=== PATIENT | female | born 1965 | race Caucasian/White ===

== ENCOUNTER → 2016-06-02 | Outpatient (CLI) | payer OTHER ==
[2016-06-02 19:26] LABS: FREE T4 1.15 NG/DL (0.76-1.46)
== END ==
LOC: M WUC 15:11
PROVIDERS: ATTEND Physician Assistant Medical
DX: E06.3 Autoimmune thyroiditis (principal)

== ENCOUNTER → 2016-07-08 | Outpatient (CLI) | payer OTHER ==
[2016-07-08 20:08] LABS: ALBUMIN 3.8 GM/DL (3.2-5.2); ALBUMIN/GLOBULIN RATIO 1.23 (1.00-1.93); ALKALINE PHOSPHATASE 67 U/L (45-117); ALT/SGPT 29 U/L (12-78); ANION GAP 7 MEQ/L (8-16); AST/SGOT 20 U/L (15-37); BILIRUBIN,TOTAL 0.3 MG/DL (0.2-1.0); BLOOD UREA NITROGEN 14 MG/DL (7-18); CALCIUM LEVEL 9.7 MG/DL (8.5-10.1); CARBON DIOXIDE LEVEL 30 MEQ/L (21-32); CHLORIDE LEVEL 103 MEQ/L (98-107); CREATININE FOR GFR 0.71 MG/DL (0.55-1.02); GLOMERULAR FILTRATION RATE > 60.0 (>58); GLUCOSE, FASTING 114 MG/DL (70-105); SODIUM LEVEL 140 MEQ/L (136-145); TOTAL PROTEIN 6.9 GM/DL (6.4-8.2)
== END ==
LOC: M WUC 15:18
PROVIDERS: ATTEND Nurse Practitioner Family
DX: I10 Essential (primary) hypertension (principal); R73.01 Impaired fasting glucose; E55.9 Vitamin D deficiency, unspecified

== ENCOUNTER → 2016-11-27 | Outpatient (CLI) | payer OTHER ==
[2016-11-27 20:12] LABS: FREE T4 1.17 NG/DL (0.76-1.46)
== END ==
LOC: M WUC 14:11
PROVIDERS: ATTEND Physician Assistant Medical
DX: E06.3 Autoimmune thyroiditis (principal)

== ENCOUNTER → 2017-01-22 | Outpatient (REF) | payer OTHER ==
[~2017-01-22] MED LIST: CITA10TA5 PO; ESTR2TA PO; LEVO125T4 PO; LOSA50TA20 PO; VITA100067 PO
== END ==
LOC: M LAB REF 15:38
PROVIDERS: ATTEND Surgery
DX: D23.5 Other benign neoplasm of skin of trunk (principal)

== ENCOUNTER → 2017-01-22 | Outpatient (CLI) | payer OTHER ==
[2017-01-22 10:30] LABS: ALBUMIN 3.5 GM/DL (3.2-5.2); ALBUMIN/GLOBULIN RATIO 1.13 (1.00-1.93); ALKALINE PHOSPHATASE 62 U/L (45-117); ALT/SGPT 28 U/L (12-78); ANION GAP 5 MEQ/L (8-16); AST/SGOT 18 U/L (15-37); BILIRUBIN,TOTAL 0.4 MG/DL (0.2-1.0); BLOOD UREA NITROGEN 12 MG/DL (7-18); CALCIUM LEVEL 9.1 MG/DL (8.5-10.1); CARBON DIOXIDE LEVEL 30 MEQ/L (21-32); CHLORIDE LEVEL 106 MEQ/L (98-107); CHOLESTEROL LEVEL 199 MG/DL (<200); CREATININE FOR GFR 0.61 MG/DL (0.55-1.02); GLOMERULAR FILTRATION RATE > 60.0 (>51); GLUCOSE, FASTING 107 MG/DL (70-105); POTASSIUM SERUM 4.4 MEQ/L (3.5-5.1); SODIUM LEVEL 141 MEQ/L (136-145); TOTAL PROTEIN 6.6 GM/DL (6.4-8.2); TRIGLYCERIDES LEVEL 118 MG/DL (<150)
== END ==
LOC: M WUC 08:11
PROVIDERS: ATTEND Nurse Practitioner Family
DX: I10 Essential (primary) hypertension (principal); R73.01 Impaired fasting glucose; E55.9 Vitamin D deficiency, unspecified; E78.4 Other hyperlipidemia

== ENCOUNTER → 2017-03-16 | Outpatient (CLI) | payer OTHER ==
--- NOTE | 2017-03-16 19:17 | REP ---
REASON: Pain anteriorly times two weeks. PRIORS: None. There is minimal tricompartmental marginal osteophytosis. There are a few lucencies seen in the articular surface of the patella. There is subtle medial compartment narrowing. 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 Consider followup with MRI if clinically relevant. Signed by Rick Wills DO 03/16/2017 07:30 P
== END ==
LOC: M WUC 17:03
PROVIDERS: ATTEND Physician Assistant
DX: M25.562 Pain in left knee (principal)

== ENCOUNTER 2017-04-08 06:33 | Day surgery (SDC) | payer OTHER ==
[~2017-04-08] VITALS: Ht 157.5 cm; Wt 109.3 kg
[2017-04-08] MEDS ORDERED: NS 1,000 ML IV ONE (07:00)
[2017-04-08] MEDS ORDERED: PROPOFOL 200 MG/20 ML VIAL As Ordered ONE (07:38)
--- NOTE | 2017-04-08 07:50 | ROOR ---
Patient Name: Daniela Strickland Procedure Date: 04/08/2017 7:33 AM Date of : 1965 Age: 51 Room: [facility] Gender: Female Note Status: Finalized Procedure: Colonoscopy Indications: Screening for colorectal malignant neoplasm Providers: DO Zuleyka Atkinson MD: Lolis Thomas NP Requesting Provider: Medicines: Propofol per Anesthesia Complications: No immediate complications. Procedure: Pre-Anesthesia Assessment: - Prior to the procedure, a History and Physical was performed, and patient medications and allergies were reviewed. The patient is competent. The risks and benefits of the procedure and the sedation options and risks were discussed with the patient. All questions were answered and informed consent was obtained. Patient identification and proposed procedure were verified by the physician, the nurse, the anesthesiologist and the heat treat technician in the endoscopy suite. Mental Status Examination: alert and oriented. Airway Examination: normal oropharyngeal airway and neck mobility. Respiratory Examination: clear to auscultation. CV Examination: normal. Prophylactic Antibiotics: The patient does not require prophylactic antibiotics. Prior Anticoagulants: The patient has taken no previous anticoagulant or antiplatelet agents. ASA Grade Assessment: II - A patient with mild systemic disease. After reviewing the risks and benefits, the patient was deemed in satisfactory condition to undergo the procedure. The anesthesia plan was to use monitored anesthesia care (MAC). Immediately prior to administration of medications, the patient was re-assessed for adequacy to receive sedatives. The heart rate, respiratory rate, oxygen saturations, blood pressure, adequacy of pulmonary ventilation, and response to care were monitored throughout the procedure. The physical status of the patient was re-assessed after the procedure. The Colonoscope was introduced through the anus and advanced to the cecum, identified by the ileocecal valve. The colonoscopy was performed without difficulty. The patient tolerated the procedure well. Findings: The entire examined colon appeared normal on direct and retroflexion views. Impression: - The entire examined colon is normal on direct and retroflexion views. - No specimens collected. Recommendation: - Patient has a contact number available for emergencies. The signs and symptoms of potential delayed complications were discussed with the patient. Return to normal activities tomorrow. Written discharge instructions were provided to the patient. - Return to my office PRN. - Repeat colonoscopy in 10 years for screening purposes. Taz Reina DO 04/08/2017 7:50:10 AM This report has been signed electronically. Number of Addenda: 0 Note Initiated On: 04/08/2017 7:33 AM Estimated Blood Loss: Estimated blood loss: none.
[2017-04-08 08:05] VITALS: BP 139/67
== END 2017-04-08 08:28 | disposition home or self-care (01) ==
LOC: M OPP 06:33 → EDSTATUS 07:30 → M OPP 08:28
PROVIDERS: ATTEND Surgery
DX: Z12.11 Encounter for screening for malignant neoplasm of colon (principal); I10 Essential (primary) hypertension; E03.9 Hypothyroidism, unspecified; M19.90 Unspecified osteoarthritis, unspecified site; F32.9 Major depressive disorder, single episode, unspecified; Z87.891 Personal history of nicotine dependence; Z85.09 Personal history of malignant neoplasm of other digestive organs

== ENCOUNTER → 2017-07-30 | Outpatient (REF) | payer OTHER ==
[2017-07-30 13:41] LABS: BASO % 0.7 % (0.0-1.0); EOS # 0.2 10^3/uL (0.0-0.50); EOS % 3.4 % (0.0-3.0); HEMATOCRIT 37.9 % (36.0-47.0); HEMOGLOBIN 12.3 g/dl (12.0-16.0); IMMATURE GRANULOCYTE % 0.3 % (0-3.0); LYMPH # 2.1 10^3/uL (1.5-4.5); LYMPH % 35.2 % (24.0-44.0); MEAN CORPUSCULAR HGB CONC 32.5 g/dl (32.0-36.5); MEAN CORPUSCULAR VOLUME 86.1 fl (80.0-96.0); MONO # 0.3 10^3/uL (0.0-0.8); MONO % 5.5 % (0.0-5.0); NEUTROPHILS # 3.2 10^3/uL (1.8-7.7); NEUTROPHILS % 54.9 % (36.0-66.0); PLATELET COUNT, AUTOMATED 274 10^3/uL (150-450); RED CELL DISTRIBUTION WIDTH 13.5 % (11.5-14.5); WHITE BLOOD COUNT 5.9 10^3/uL (4.0-10.0)
[2017-07-30 14:45] LABS: ALBUMIN 3.5 GM/DL (3.2-5.2); ALBUMIN/GLOBULIN RATIO 1.09 (1.00-1.93); ALKALINE PHOSPHATASE 63 U/L (45-117); ALT/SGPT 23 U/L (12-78); ANION GAP 7 MEQ/L (8-16); AST/SGOT 14 U/L (7-37); BILIRUBIN,TOTAL 0.3 MG/DL (0.2-1.0); BLOOD UREA NITROGEN 14 MG/DL (7-18); CALCIUM LEVEL 9.5 MG/DL (8.5-10.1); CARBON DIOXIDE LEVEL 28 MEQ/L (21-32); CHLORIDE LEVEL 107 MEQ/L (98-107); CREATININE FOR GFR 0.59 MG/DL (0.55-1.30); GLOMERULAR FILTRATION RATE > 60.0 (>51); GLUCOSE, FASTING 122 MG/DL (70-100); POTASSIUM SERUM 4.5 MEQ/L (3.5-5.1); SODIUM LEVEL 142 MEQ/L (136-145); TOTAL PROTEIN 6.7 GM/DL (6.4-8.2)
[2017-07-30 14:48] LABS: CREATININE, URINE 69.1 MG/DL; MALB URINE SIEMENS < 5.0 MG/L; MAU/CREAT RATIO 7.2 MCG/MG (0.0-30.0)
== END ==
LOC: M SFHCPLAZ 09:51
DX: Z00.00 Encounter for general adult medical examination without abnormal findings (principal); I10 Essential (primary) hypertension
CPT/HCPCS: 80053

== ENCOUNTER → 2017-11-30 | Outpatient (CLI) | payer OTHER ==
[2017-11-30 17:22] LABS: FREE T4 1.08 NG/DL (0.76-1.46)
== END ==
LOC: M WUC 11:27
DX: E06.3 Autoimmune thyroiditis (principal)
CPT/HCPCS: 84443

== ENCOUNTER → 2018-06-07 | Outpatient (CLI) | payer OTHER ==
[~2018-06-07] MED LIST changes: -ESTR2TA PO; +ESTR2TAB2 PO; -LOSA50TA20 PO; +LOSA50TA88 PO
[2018-06-07 11:49] LABS: RED BLOOD COUNT 4.79 10^6/uL (4.00-5.40); WHITE BLOOD COUNT 5.8 10^3/uL (4.0-10.0)
[2018-06-07 11:50] LABS: HEMATOCRIT 40.4 % (36.0-47.0); HEMOGLOBIN 13.3 g/dl (12.0-15.5); MEAN CORPUSCULAR HEMOGLOBIN 27.8 pg (27.0-33.0); MEAN CORPUSCULAR HGB CONC 32.9 g/dl (32.0-36.5); MEAN CORPUSCULAR VOLUME 84.3 fl (80.0-96.0); PLATELET COUNT, AUTOMATED 302 10^3/uL (150-450)
[2018-06-07 12:21] LABS: ALBUMIN 3.9 GM/DL (3.2-5.2); ALT/SGPT 40 U/L (12-78); BILIRUBIN,TOTAL 0.6 MG/DL (0.2-1.0); BLOOD UREA NITROGEN 17 MG/DL (7-18); CALCIUM LEVEL 10.6 MG/DL (8.5-10.1); CARBON DIOXIDE LEVEL 29 MEQ/L (21-32); CHLORIDE LEVEL 101 MEQ/L (98-107); CREATININE FOR GFR 0.69 MG/DL (0.55-1.30); GLOMERULAR FILTRATION RATE > 60.0 (>51); GLUCOSE, FASTING 96 MG/DL (70-100); SODIUM LEVEL 139 MEQ/L (136-145); TOTAL 25(OH) VITAMIN D 43.2 NG/ML (30.0-100.0); TOTAL PROTEIN 7.1 GM/DL (6.4-8.2)
== END ==
LOC: M LAB 10:54
PROVIDERS: ATTEND Nurse Practitioner Family
DX: R53.83 Other fatigue (principal); I10 Essential (primary) hypertension; E03.9 Hypothyroidism, unspecified; E55.9 Vitamin D deficiency, unspecified; E66.01 Morbid (severe) obesity due to excess calories; Z68.42 Body mass index [BMI] 45.0-49.9, adult

== ENCOUNTER → 2018-08-10 | Outpatient (CLI) | payer OTHER ==
--- NOTE | 2018-08-12 23:54 | SLEEPCENT ---
DATE OF PROCEDURE: 08/10/2018 ORDERED BY: Josseline Sweeney Nocturnal polysomnography was performed for evaluation of sleep physiology in this patient with a history of excessive somnolence and nonrestorative sleep who has comorbidities of hypotension and hypothyroidism. 8 hours and 3 minutes of data were reviewed. There were 375 minutes of sleep identified. Sleep latency was mildly prolonged at 18 minutes. Rapid eye movement (REM) latency more so prolonged at 222 minutes. Sleep architecture was fair with two REM cycles. There was a period of wake around 3:00 a.m. reducing sleep efficiency to 78.6%. The patient's electrocardiogram showed baseline sinus rhythm with frequent ectopy was appreciated, and there were episodes of trigeminy noted. Average heart rate was 66 beats per minute. The ectopy did not consistently correlate with oxygen saturation or respiratory events. EEG showed reasonably normal waveforms for awake and sleep. Some coarsening in background was noted with alpha intrusion into non- REM stages. There were 60 respiratory events identified of 10 seconds in duration or greater for an apnea-hypopnea index of 9.6. The events were primarily obstructive, not exclusive to sleep stage nor body posture. Arousals from respiratory events were seen 1.6 times per hour and oxygen desaturations were seen into the 80s. There was some limb activity, but limb movement arousals were few. IMPRESSION: 1. Obstructive sleep apnea syndrome (G47.33). Apnea-hypopnea index 9.6. 2. Frequent premature ventricular contractions (PVCs) with episodes of trigeminy. RECOMMENDATIONS: The patient should be encouraged to return to the sleep disorder center for pressure therapy. In the interim, alcohol and sedative avoidance should be practiced and caution exercised during the operation of motor vehicles.
== END ==
LOC: M SLEEP 19:36
PROVIDERS: ATTEND Nurse Practitioner Family
DX: G47.33 Obstructive sleep apnea (adult) (pediatric) (principal)

== ENCOUNTER → 2018-08-10 | Outpatient (CLI) | payer OTHER ==
[2018-08-10 17:04] LABS: BLOOD UREA NITROGEN 17 MG/DL (7-18); CALCIUM LEVEL 10.3 MG/DL (8.5-10.1); CARBON DIOXIDE LEVEL 30 MEQ/L (21-32); CHLORIDE LEVEL 105 MEQ/L (98-107); CREATININE FOR GFR 0.68 MG/DL (0.55-1.30); GLOMERULAR FILTRATION RATE > 60.0 (>51); GLUCOSE, FASTING 96 MG/DL (70-100); SODIUM LEVEL 140 MEQ/L (136-145)
[2018-08-12 11:06] LABS: PTH INTACT 45.4 PG/ML (18.5-88.0); TOTAL 25(OH) VITAMIN D 24.3 NG/ML (30.0-100.0)
== END ==
LOC: M WUC 14:09
PROVIDERS: ATTEND Nurse Practitioner Family
DX: E83.52 Hypercalcemia (principal)

== ENCOUNTER → 2018-10-21 | Outpatient (CLI) | payer OTHER ==
--- NOTE | 2018-10-26 09:09 | SLEEPCENT ---
DATE OF STUDY: 10/21/2018 ORDERING PROVIDER: RUIZ Hidalgo Nocturnal polysomnography was performed for the titration of pressure therapy in this patient with obstructive sleep apnea syndrome. Apnea-hypopnea index 9.6. For testing, the patient was fit with a Punchbowl Simplus full face mask of small size. 4 cm of water pressure were applied to the circuit, and the lights were extinguished. 7 hours and 14 minutes of data were reviewed. There were 341 minutes of sleep identified. Sleep latency was prolonged at 23 minutes. Rapid eye movement (REM) latency was prolonged at 158 minutes. Sleep architecture was fair. There were two REM cycles noted with a period of awake around 2 a.m. to 3 a.m., resulting in reduced sleep efficiency of 80%. The electrocardiogram showed a sinus rhythm with some ectopic beats. Average heart rate 56 beats per minute. Electroencephalogram (EEG) showed reasonably normal waveforms for awake and sleep. Respiratory events were well palliated with continuous positive airway pressure (CPAP) at a pressure of 10. There was some limb activity, but limb movement arousal index was only 6.2. IMPRESSION: Obstructive sleep apnea syndrome (G47.33). RECOMMENDATION: Nightly use of pressure therapy, 10 cm of water.
== END ==
LOC: M SLEEP 19:41
PROVIDERS: ATTEND Nurse Practitioner Family
DX: G47.33 Obstructive sleep apnea (adult) (pediatric) (principal)

== ENCOUNTER → 2018-11-17 | Outpatient (CLI) | payer OTHER ==
[2018-11-17 20:21] LABS: FREE T4 1.06 NG/DL (0.76-1.46); THYROID STIMULATING HORMONE 0.757 uIU/ML (0.358-3.740)
== END ==
LOC: M WUC 16:50
PROVIDERS: ATTEND Nurse Practitioner Family
DX: E06.3 Autoimmune thyroiditis (principal)

== ENCOUNTER → 2018-11-23 | Outpatient (REF) | payer OTHER | LOC: M SFHCPLAZ 15:48 | PROVIDERS: ATTEND Nurse Practitioner Family | DX: I10 Essential (primary) hypertension (principal); Z53.9 Procedure and treatment not carried out, unspecified reason ==

== ENCOUNTER → 2018-12-02 | Outpatient (CLI) | payer OTHER ==
[2018-12-02 12:11] LABS: ALBUMIN 3.8 GM/DL (3.2-5.2); ALT/SGPT 44 U/L (12-78); BILIRUBIN,TOTAL 0.7 MG/DL (0.2-1.0); BLOOD UREA NITROGEN 12 MG/DL (7-18); CALCIUM LEVEL 9.2 MG/DL (8.5-10.1); CARBON DIOXIDE LEVEL 29 MEQ/L (21-32); CHLORIDE LEVEL 108 MEQ/L (98-107); CREATININE FOR GFR 0.59 MG/DL (0.55-1.30); GLOMERULAR FILTRATION RATE > 60.0 (>51); GLUCOSE, FASTING 101 MG/DL (70-100); POTASSIUM SERUM 4.3 MEQ/L (3.5-5.1); SODIUM LEVEL 142 MEQ/L (136-145); TOTAL PROTEIN 6.7 GM/DL (6.4-8.2)
[2018-12-03 11:03] LABS: HEPATITIS B SURFACE ANTIGEN NEGATIVE (NEGATIVE)
[2018-12-03 11:30] LABS: HEPATITIS C VIRUS ABY INDEX 0.1 INDEX (<0.8)
[2018-12-03 11:31] LABS: HEPATITIS B CORE ANTIBODY IGM NEGATIVE (NEGATIVE)
[2018-12-03 11:33] LABS: HEPATITIS A ANTIBODY IGM NEGATIVE (NEGATIVE)
== END ==
LOC: M WUC 09:13
PROVIDERS: ATTEND Nurse Practitioner Family
DX: I10 Essential (primary) hypertension (principal); Z20.5 Contact with and (suspected) exposure to viral hepatitis

== ENCOUNTER → 2019-02-22 | Outpatient (CLI) | payer OTHER ==
[2019-02-22 11:58] LABS: ALBUMIN 3.9 GM/DL (3.2-5.2); ALT/SGPT 31 U/L (12-78); BILIRUBIN,TOTAL 0.4 MG/DL (0.2-1.0); BLOOD UREA NITROGEN 22 MG/DL (7-18); CALCIUM LEVEL 9.7 MG/DL (8.5-10.1); CARBON DIOXIDE LEVEL 28 MEQ/L (21-32); CHLORIDE LEVEL 109 MEQ/L (98-107); CHOLESTEROL LEVEL 207 MG/DL (<200); CHOLESTEROL RISK RATIO 4.404 (<5); CREATININE FOR GFR 0.61 MG/DL (0.55-1.30); GLOMERULAR FILTRATION RATE > 60.0 (>51); GLUCOSE, FASTING 99 MG/DL (70-100); HDL CHOLESTEROL 47 MG/DL (>40); LDL CHOLESTEROL 145 MG/DL (<100); NON-HDL-C 160 MG/DL; POTASSIUM SERUM 4.4 MEQ/L (3.5-5.1); SODIUM LEVEL 145 MEQ/L (136-145); THYROID STIMULATING HORMONE 0.462 uIU/ML (0.358-3.740); TOTAL PROTEIN 6.7 GM/DL (6.4-8.2); TRIGLYCERIDES LEVEL 75 MG/DL (<150)
[2019-02-22 13:45] LABS: TOTAL 25(OH) VITAMIN D 38.7 NG/ML (30.0-100.0)
== END ==
LOC: M WUC 08:42
PROVIDERS: ATTEND Nurse Practitioner Family
DX: E78.49 Other hyperlipidemia (principal); E03.9 Hypothyroidism, unspecified; E55.9 Vitamin D deficiency, unspecified; I10 Essential (primary) hypertension

== ENCOUNTER → 2019-08-17 | Outpatient (REF) | payer OTHER | LOC: M WUC 15:53 → M LAB REF 15:53 | PROVIDERS: ATTEND Nurse Practitioner Family | DX: E06.3 Autoimmune thyroiditis (principal) ==

== ENCOUNTER → 2019-09-08 | Outpatient (CLI) | payer OTHER ==
[2019-09-08 20:14] LABS: ALT/SGPT 42 U/L (12-78); BLOOD UREA NITROGEN 16 MG/DL (7-18); CALCIUM LEVEL 9.8 MG/DL (8.5-10.1); CARBON DIOXIDE LEVEL 29 MEQ/L (21-32); CHLORIDE LEVEL 104 MEQ/L (98-107); CREATININE FOR GFR 0.66 MG/DL (0.55-1.30); GLOMERULAR FILTRATION RATE > 60.0 (>51); GLUCOSE, FASTING 95 MG/DL (70-100); POTASSIUM SERUM 4.2 MEQ/L (3.5-5.1); SODIUM LEVEL 138 MEQ/L (136-145)
[2019-09-08 20:15] LABS: ALBUMIN 3.9 GM/DL (3.2-5.2); BILIRUBIN,TOTAL 0.3 MG/DL (0.2-1.0); TOTAL PROTEIN 7.1 GM/DL (6.4-8.2)
--- NOTE | 2019-09-09 02:45 | REP ---
Clinical: Primary/essential hypertension and history of pneumonia . Comparison: None . Technique: PA and lateral. Findings: The mediastinum and cardiac silhouette are normal. The lung longoria are clear and without acute consolidation, effusion, or pneumothorax. The skeletal structures are intact and normal. Impression: 1. No acute cardiopulmonary process. Electronically Signed by Atilio Mcdonough MD 09/09/2019 02:36 A
== END ==
LOC: M WUC 15:21
PROVIDERS: ATTEND Nurse Practitioner Family
DX: I10 Essential (primary) hypertension (principal); Z87.01 Personal history of pneumonia (recurrent)

== ENCOUNTER → 2019-10-27 | Outpatient (CLI) | payer OTHER ==
[2019-10-27 14:15] LABS: FREE T4 1.28 NG/DL (0.76-1.46); THYROID STIMULATING HORMONE 3.12 uIU/ML (0.358-3.740)
== END ==
LOC: M WUC 09:36
PROVIDERS: ATTEND Nurse Practitioner Family
DX: E06.3 Autoimmune thyroiditis (principal)

== ENCOUNTER → 2020-02-21 | Outpatient (CLI) | payer OTHER ==
[2020-02-21 19:05] LABS: FREE T4 1.12 NG/DL (0.76-1.46); THYROID STIMULATING HORMONE 1.2 uIU/ML (0.358-3.740)
== END ==
LOC: M WUC 11:47
PROVIDERS: ATTEND Nurse Practitioner Family
DX: E06.3 Autoimmune thyroiditis (principal)

== ENCOUNTER → 2020-03-08 | Outpatient (CLI) | payer OTHER ==
[2020-03-08 10:23] LABS: ALBUMIN 3.9 GM/DL (3.2-5.2); ALT/SGPT 39 U/L (12-78); BILIRUBIN,TOTAL 0.3 MG/DL (0.2-1.0); BLOOD UREA NITROGEN 21 MG/DL (7-18); CALCIUM LEVEL 9.8 MG/DL (8.5-10.1); CARBON DIOXIDE LEVEL 31 MEQ/L (21-32); CHLORIDE LEVEL 106 MEQ/L (98-107); CHOLESTEROL LEVEL 245 MG/DL (<200); CHOLESTEROL RISK RATIO 4.083 (<5); CREATININE FOR GFR 0.69 MG/DL (0.55-1.30); GLOMERULAR FILTRATION RATE > 60.0 (>51); GLUCOSE, FASTING 115 MG/DL (70-100); HDL CHOLESTEROL 60 MG/DL (>40); LDL CHOLESTEROL 166 MG/DL (<100); NON-HDL-C 185 MG/DL; POTASSIUM SERUM 4.1 MEQ/L (3.5-5.1); SODIUM LEVEL 142 MEQ/L (136-145); TOTAL PROTEIN 7.1 GM/DL (6.4-8.2); TRIGLYCERIDES LEVEL 97 MG/DL (<150)
[2020-03-08 16:17] LABS: TOTAL 25(OH) VITAMIN D 45.5 NG/ML (30.0-100.0)
== END ==
LOC: M WUC 08:03
PROVIDERS: ATTEND Nurse Practitioner Family
DX: I10 Essential (primary) hypertension (principal); E78.5 Hyperlipidemia, unspecified; E55.9 Vitamin D deficiency, unspecified

== ENCOUNTER 2020-07-20 08:30 | Outpatient (RCR) | payer OTHER | END 2020-07-22 | LOC: M PT 08:30 | PROVIDERS: ATTEND Surgery Vascular Surgery | DX: I89.0 Lymphedema, not elsewhere classified (principal) ==

== ENCOUNTER 2020-08-06 16:33 | Outpatient (RCR) | payer OTHER | END 2020-08-22 | LOC: M PT 16:33 | PROVIDERS: ATTEND Surgery Vascular Surgery | DX: I89.0 Lymphedema, not elsewhere classified (principal) ==

== ENCOUNTER → 2020-08-14 | Outpatient (CLI) | payer OTHER ==
[2020-08-14 17:30] LABS: FREE T4 1.09 NG/DL (0.76-1.46); THYROID STIMULATING HORMONE 0.932 uIU/ML (0.358-3.740)
== END ==
LOC: M WUC 15:28
PROVIDERS: ATTEND Nurse Practitioner Family
DX: E06.3 Autoimmune thyroiditis (principal)

== ENCOUNTER → 2020-09-06 | Outpatient (CLI) | payer OTHER ==
[2020-09-06 10:40] LABS: ALBUMIN 3.7 GM/DL (3.2-5.2); ALT/SGPT 40 U/L (12-78); BILIRUBIN,TOTAL 0.3 MG/DL (0.2-1.0); BLOOD UREA NITROGEN 27 MG/DL (7-18); CALCIUM LEVEL 9.9 MG/DL (8.5-10.1); CARBON DIOXIDE LEVEL 28 MEQ/L (21-32); CHLORIDE LEVEL 107 MEQ/L (98-107); CHOLESTEROL LEVEL 231 MG/DL (<200); CHOLESTEROL RISK RATIO 4.125 (<5); CREATININE FOR GFR 0.58 MG/DL (0.55-1.30); GLOMERULAR FILTRATION RATE > 60.0 (>51); GLUCOSE, FASTING 110 MG/DL (70-100); HDL CHOLESTEROL 56 MG/DL (>40); LDL CHOLESTEROL 159 MG/DL (<100); NON-HDL-C 175 MG/DL; POTASSIUM SERUM 4.5 MEQ/L (3.5-5.1); SODIUM LEVEL 141 MEQ/L (136-145); TOTAL PROTEIN 6.7 GM/DL (6.4-8.2); TRIGLYCERIDES LEVEL 78 MG/DL (<150)
[2020-09-06 10:46] LABS: MALB URINE SIEMENS 8.4 MG/L; MAU/CREAT RATIO 7.3 MCG/MG (0.0-30.0)
[2020-09-06 18:19] LABS: HEMOGLOBIN A1c 5.8 %
== END ==
LOC: M WUC 08:34
PROVIDERS: ATTEND Nurse Practitioner Family
DX: E78.5 Hyperlipidemia, unspecified (principal); I10 Essential (primary) hypertension; R73.01 Impaired fasting glucose; E55.9 Vitamin D deficiency, unspecified

== ENCOUNTER → 2021-02-28 | Outpatient (CLI) | payer OTHER ==
[2021-02-28 13:13] LABS: HEMOGLOBIN A1c 5.6 %
[2021-02-28 14:55] LABS: ALBUMIN 3.8 GM/DL (3.2-5.2); ALT/SGPT 48 U/L (12-78); BILIRUBIN,TOTAL 0.4 MG/DL (0.2-1.0); BLOOD UREA NITROGEN 18 MG/DL (7-18); CARBON DIOXIDE LEVEL 28 MEQ/L (21-32); CHLORIDE LEVEL 104 MEQ/L (98-107); CREATININE FOR GFR 0.58 MG/DL (0.55-1.30); GLOMERULAR FILTRATION RATE > 60.0 (>51); GLUCOSE, FASTING 106 MG/DL (70-100); POTASSIUM SERUM 4.5 MEQ/L (3.5-5.1); SODIUM LEVEL 139 MEQ/L (136-145); TOTAL 25(OH) VITAMIN D 39.2 NG/ML (30.0-100.0)
== END ==
LOC: M WUC 10:21
PROVIDERS: ATTEND Nurse Practitioner Family
DX: R73.03 Prediabetes (principal); I10 Essential (primary) hypertension; E55.9 Vitamin D deficiency, unspecified

== ENCOUNTER → 2021-05-03 | Outpatient (CLI) | payer OTHER ==
[~2021-05-03] MED LIST changes: -ESTR2TAB2 PO; +ESTR2TAB3 PO
--- NOTE | 2021-05-03 16:27 | REPMRS ---
Patient History The patient states she has not had a clinical breast exam in over a year. Patient is postmenopausal. No known family history of cancer. Patient states no breast complaints today. Patient has signed MRS History Sheet. Digital Woman Screen Mammo: May 03, 2021 - Exam #: [id number] Bilateral CC and MLO view(s) were taken. Technologist: Bernadine Parnell, Technologist Prior study comparison: March 16, 2018, bilateral digital mammo screening bilat, performed at [facility]. August 01, 2015, bilateral digital mammo screening bilat, performed at [facility]. FINDINGS: The breast tissue is almost entirely fat. Screening. Digital screening (2D) mammography was performed bilaterally in the CC and MLO projections. Additionally, breast tomosynthesis (3D mammography) was performed bilaterally in the CC and MLO projections. Todays exam was compared to the prior exam/exams. By history, the patient has no complaints of a palpable breast abnormality or other significant breast complaints. The Volpara volumetric breast density category is A, the breasts are almost entirely fatty. The breasts are unchanged in size and shape.There is a stable benign intramammary lymph node in the right breast. There are no zulema-soft tissue densities or spiculated masses. There is no internal architectural distortion. There are no suspicious zulema-calcific clusters. Skin thickening or nipple retraction is not present. IMPRESSION: BI-RADS Category 2- Benign Findings. There is no evidence of malignant alteration of the breasts. Followup examination recommended in one year. This mammogram was read with the assistance of Mobile Backstage,an FDA approved computer aided detection system for mammography. The lifetime Tyrer-Cuzick score is 8.0% Negative x-ray reports should not delay surgical consultation if a dominant or clinically suspicious mass is present. Not all breast cancers can be identified by mammography. Therefore, we recommend that you continue to perform regular breast self-examination and physical examination and then promptly contact your physician of any concerns or changes. Adenosis and dense breasts may obscure an underlying neoplasm. No significant changes when compared with prior studies. Assessment: BI-RADS/ACR category 2 mammogram. Benign Findings. Recommendation Routine screening mammogram of both breasts in 1 year. Electronically Signed By: William Velásquez MD 05/03/21 [id number]
== END ==
LOC: M WHC 15:08
PROVIDERS: ATTEND Nurse Practitioner Family
DX: Z12.31 Encounter for screening mammogram for malignant neoplasm of breast (principal); Z78.0 Asymptomatic menopausal state

== ENCOUNTER → 2021-12-31 | Outpatient (CLI) | payer OTHER ==
[~2021-12-31] MED LIST changes: -CITA10TA5 PO; +CITA10TA7 PO; +LOSA50TA28 PO; -LOSA50TA88 PO
[2021-12-31 10:33] LABS: BASO % 0.6 % (0.0-1.0); EOS # 0.2 10^3/uL (0.0-0.5); EOS % 3.1 % (0.0-3.0); HEMOGLOBIN 13.5 g/dl (12.0-15.5); LYMPH # 1.7 10^3/uL (1.5-5.0); LYMPH % 32.7 % (24.0-44.0); MEAN CORPUSCULAR HEMOGLOBIN 27.9 pg (27.0-33.0); MEAN CORPUSCULAR HGB CONC 32.1 g/dl (32.0-36.5); MEAN CORPUSCULAR VOLUME 86.8 fl (80.0-96.0); MONO # 0.3 10^3/uL (0.0-0.8); MONO % 6.5 % (2.0-8.0); NEUTROPHILS % 56.7 % (36.0-66.0); PLATELET COUNT, AUTOMATED 263 10^3/uL (150-450); RED BLOOD COUNT 4.84 10^6/uL (4.00-5.40); WHITE BLOOD COUNT 5.2 10^3/uL (4.0-10.0)
[2021-12-31 11:01] LABS: ALBUMIN 3.8 GM/DL (3.2-5.2); ALT/SGPT 34 U/L (12-78); BILIRUBIN,TOTAL 0.5 MG/DL (0.2-1.0); BLOOD UREA NITROGEN 23 MG/DL (7-18); CARBON DIOXIDE LEVEL 30 MEQ/L (21-32); CHLORIDE LEVEL 106 MEQ/L (98-107); CHOLESTEROL LEVEL 228 MG/DL (<200); CREATININE FOR GFR 0.66 MG/DL (0.55-1.30); GLOMERULAR FILTRATION RATE > 60.0 (>51); GLUCOSE, FASTING 116 MG/DL (70-100); HDL CHOLESTEROL 51 MG/DL (>40); LDL CHOLESTEROL 155 MG/DL (<100); NON-HDL-C 177 MG/DL; POTASSIUM SERUM 4.2 MEQ/L (3.5-5.1); SODIUM LEVEL 143 MEQ/L (136-145); TOTAL PROTEIN 6.8 GM/DL (6.4-8.2); TRIGLYCERIDES LEVEL 112 MG/DL (<150)
[2021-12-31 11:11] LABS: HEMOGLOBIN A1c 5.9 %
[2021-12-31 11:30] LABS: TOTAL 25(OH) VITAMIN D 43.8 NG/ML (30.0-100.0)
== END ==
LOC: M PLALAB 07:28
PROVIDERS: ATTEND Nurse Practitioner Family
DX: E78.5 Hyperlipidemia, unspecified (principal); E55.9 Vitamin D deficiency, unspecified; R73.03 Prediabetes; I10 Essential (primary) hypertension

== ENCOUNTER → 2022-02-03 | Outpatient (CLI) | payer OTHER | LOC: M SOG 08:45 | PROVIDERS: ATTEND Orthopaedic Surgery | DX: M25.511 Pain in right shoulder (principal) ==

== ENCOUNTER → 2022-04-18 | Outpatient (CLI) | payer OTHER ==
[2022-04-18 08:29] LABS: BASO % 0.7 % (0.0-1.0); EOS # 0.2 10^3/uL (0.0-0.5); HEMATOCRIT 41.8 % (36.0-47.0); HEMOGLOBIN 13.4 g/dl (12.0-15.5); MEAN CORPUSCULAR HEMOGLOBIN 27.8 pg (27.0-33.0); MEAN CORPUSCULAR HGB CONC 32.1 g/dl (32.0-36.5); MEAN CORPUSCULAR VOLUME 86.7 fl (80.0-96.0); MONO # 0.3 10^3/uL (0.0-0.8); MONO % 4.9 % (2.0-8.0); NEUTROPHILS # 2.9 10^3/uL (1.5-8.5); PLATELET COUNT, AUTOMATED 255 10^3/uL (150-450); RED BLOOD COUNT 4.82 10^6/uL (4.00-5.40); WHITE BLOOD COUNT 5.4 10^3/uL (4.0-10.0)
[2022-04-18 09:07] LABS: ALT/SGPT 37 U/L (7.0-40); BILIRUBIN,TOTAL 0.6 MG/DL (0.3-1.2); BLOOD UREA NITROGEN 16 MG/DL (9-23); CALCIUM LEVEL 9.9 MG/DL (8.5-10.1); CARBON DIOXIDE LEVEL 30 MMOL/L (20-31); CHLORIDE LEVEL 103 MMOL/L (98-107); CHOLESTEROL LEVEL 208 MG/DL (<200); CREATININE FOR GFR 0.62 MG/DL (0.55-1.30); GLOMERULAR FILTRATION RATE > 60.0 (>51); GLUCOSE, FASTING 103 MG/DL (60-100); HDL CHOLESTEROL 46.2 MG/DL (>40); LDL CHOLESTEROL 145.4 MG/DL (<100); NON-HDL-C 162 MG/DL; POTASSIUM SERUM 4.1 MMOL/L (3.5-5.1); SODIUM LEVEL 139 MMOL/L (136-145); TOTAL 25(OH) VITAMIN D 54.9 NG/ML (20.0-100.0); TOTAL PROTEIN 6.6 G/DL (5.7-8.2); TRIGLYCERIDES LEVEL 82 MG/DL (<150)
[2022-04-18 11:25] LABS: HEMOGLOBIN A1c 5.3 % (4.0-6.0)
== END ==
LOC: M LAB 08:07 → M PLALAB 08:07
PROVIDERS: ATTEND Nurse Practitioner Family
DX: I10 Essential (primary) hypertension (principal); E55.9 Vitamin D deficiency, unspecified; R73.03 Prediabetes; E78.5 Hyperlipidemia, unspecified

== ENCOUNTER → 2022-04-21 | Outpatient (CLI) | payer OTHER ==
[2022-04-21 19:39] LABS: FREE T4 1.61 NG/DL (0.89-1.76); THYROID STIMULATING HORMONE 0.297 uIU/ML (0.55-4.78)
== END ==
LOC: M WUC 15:13
PROVIDERS: ATTEND Nurse Practitioner Family
DX: E06.3 Autoimmune thyroiditis (principal)

== ENCOUNTER → 2022-07-23 | Outpatient (CLI) | payer OTHER ==
[2022-07-24 11:38] LABS: THYROID STIMULATING HORMONE 0.383 uIU/ML (0.55-4.78)
[2022-07-24 11:39] LABS: FREE T4 1.5 NG/DL (0.89-1.76)
== END ==
LOC: M PLALAB 16:27
PROVIDERS: ATTEND Nurse Practitioner Family
DX: E06.3 Autoimmune thyroiditis (principal)

== ENCOUNTER 2022-08-25 22:44 | Inpatient (IN) | payer OTHER ==
[~2022-08-25] VITALS: Ht 157.5 cm; Wt 99.7 kg
[2022-08-25 17:30] LABS: BASO # 0.1 10^3/uL (0.0-0.2); BASO % 0.4 % (0.0-1.0); EOS # 0.1 10^3/uL (0.0-0.5); HEMATOCRIT 41.2 % (36.0-47.0); HEMOGLOBIN 13.3 g/dl (12.0-15.5); LYMPH # 2.7 10^3/uL (1.5-5.0); LYMPH % 22.1 % (24.0-44.0); MEAN CORPUSCULAR HEMOGLOBIN 26.5 pg (27.0-33.0); MEAN CORPUSCULAR HGB CONC 32.3 g/dl (32.0-36.5); MEAN CORPUSCULAR VOLUME 82.2 fl (80.0-96.0); MONO # 0.7 10^3/uL (0.0-0.8); MONO % 5.3 % (2.0-8.0); NEUTROPHILS # 8.8 10^3/uL (1.5-8.5); NEUTROPHILS % 70.9 % (36.0-66.0); PLATELET COUNT, AUTOMATED 293 10^3/uL (150-450); RED BLOOD COUNT 5.01 10^6/uL (4.00-5.40); WHITE BLOOD COUNT 12.4 10^3/uL (4.0-10.0)
[2022-08-25] MEDS: fentaNYL 100 MCG/2 ML INJECTION IV PRN ×2 (17:31→17:48)
[2022-08-25 17:55] LABS: INR 0.89; PROTHROMBIN TIME 12.2 SECONDS (12.5-14.5)
[2022-08-25 18:01] LABS: CK-MB VALUE MASS < 1.0 NG/ML (<3.6); LIPASE 53 U/L (12-53)
[2022-08-25 18:02] LABS: CPK CREATINE PHOSPHOKINASE 83 U/L (34-145); CPK CREATINE PHOSPHOKINASE 86 U/L (34-145)
[2022-08-25 18:05] LABS: RSV AMPLIFICATION NEGATIVE (NEGATIVE)
[2022-08-25] MEDS: METOPROLOL 5 MG/5 ML VIAL IV SCH ×3 (18:20→18:35)
[2022-08-25 18:22] LABS: ALBUMIN 4.1 G/DL (3.2-5.2); ALKALINE PHOSPHATASE 77 U/L (46-116); ALT/SGPT 51 U/L (7.0-40); AST/SGOT 46 U/L (<34); BILIRUBIN,DIRECT 0.5 MG/DL (<0.4); BLOOD UREA NITROGEN 15 MG/DL (9-23); CALCIUM LEVEL 11.2 MG/DL (8.5-10.1); CARBON DIOXIDE LEVEL 28 MMOL/L (20-31); CHLORIDE LEVEL 102 MMOL/L (98-107); CK-MB VALUE MASS < 1.0 NG/ML (<3.6); FREE T4 1.67 NG/DL (0.89-1.76); GLOMERULAR FILTRATION RATE > 60.0 (>51); GLUCOSE, FASTING 109 MG/DL (60-100); MAGNESIUM LEVEL 2.2 MG/DL (1.8-2.4); MB/CK RELATIVE INDEX 1.16 (< OR =4); POTASSIUM SERUM 3.4 MMOL/L (3.5-5.1); SODIUM LEVEL 139 MMOL/L (136-145); THYROID STIMULATING HORMONE 0.367 uIU/ML (0.55-4.78); TOTAL PROTEIN 7.2 G/DL (5.7-8.2)
[2022-08-25 19:24] LABS: CK-MB VALUE MASS < 1.0 NG/ML (<3.6)
[2022-08-25 19:37] LABS: CPK CREATINE PHOSPHOKINASE 82 U/L (34-145); MB/CK RELATIVE INDEX 1.21 (< OR =4)
[~2022-08-25 22:44] MED LIST changes: +ACETAMINOPHEN TAB 650MG DOSE (2X325MG) PO PRN; +ASPIRIN 81MG CHEW TABLET As Ordered ONE; +ASPIRIN 81MG CHEW TABLET PO ONE; +DIGOXIN 0.25 MG TAB PO ONE; +ISOVUE-370 76% 100ML VIAL As Ordered ONE; +METOPROLOL 5 MG/5 ML VIAL As Ordered ONE; +METOPROLOL 5 MG/5 ML VIAL IV STA; +MOM 30ML SUSPENSION UDC PO PRN; +NITROGLYCERIN 0.4MG SUBL TABLET As Ordered ONE; +NITROGLYCERIN 0.4MG SUBL TABLET SL PRN; +NS 500 ML IV ONE; +ONDANSETRON 4MG 2ML VIAL As Ordered ONE; +ONDANSETRON 4MG 2ML VIAL IV ONE; +PIPERACILLIN/TAZOBACTAM SOD 4.5 GM in D5W MINI-BAG PLUS 50 ML IV ONE; +atenoloL 50 MG TAB PO ONE; +fentaNYL 100 MCG/2 ML INJECTION As Ordered ONE
[2022-08-25] MEDS ORDERED: CELE10TA PO (22:50)
[2022-08-25] MEDS ORDERED: CHLO125TA PO (22:50)
[2022-08-25] MEDS ORDERED: VITA100093 PO (22:50)
[2022-08-25] MEDS ORDERED: LOSA100T45 PO (22:50)
[2022-08-25] MEDS ORDERED: HOME MED LIST COMPLETE! XX SCH (22:50)
[2022-08-25] MEDS ORDERED: SEMA1PEN2 SC (22:50)
[2022-08-25] MEDS ORDERED: SYNT100T PO (22:50)
[2022-08-25] MEDS: NS 1,000 ML IV SCH (22:51)
[2022-08-25 23:14] VITALS: BP 104/59
[2022-08-26] VITALS (7 sets, daily range): BP systolic 91–124; BP diastolic 48–59
[2022-08-26] MEDS: PIPERACILLIN/TAZOBACTAM SOD 4.5 GM in D5W MINI-BAG PLUS 50 ML IV SCH ×4 (01:42→20:21)
[2022-08-26] MEDS: LEVOTHYROXINE 100MCG TABLET (0.1MG) PO SCH (05:01)
[2022-08-26 05:42] LABS: HEMATOCRIT 37.5 % (36.0-47.0); MEAN CORPUSCULAR HEMOGLOBIN 26.7 pg (27.0-33.0); MEAN CORPUSCULAR VOLUME 83.3 fl (80.0-96.0); PLATELET COUNT, AUTOMATED 257 10^3/uL (150-450); WHITE BLOOD COUNT 5.5 10^3/uL (4.0-10.0)
[2022-08-26] MEDS ORDERED: HEPARIN SOD (PORCINE) 5000UNITS/ML 1ML VIAL/SYRINGE SC SCH (06:00)
[2022-08-26 06:16] LABS: ALBUMIN 3.1 G/DL (3.2-5.2); ALKALINE PHOSPHATASE 71 U/L (46-116); ALT/SGPT 221 U/L (7.0-40); AST/SGOT 170 U/L (<34); BILIRUBIN,TOTAL 1.3 MG/DL (0.3-1.2); BLOOD UREA NITROGEN 12 MG/DL (9-23); CALCIUM LEVEL 9.6 MG/DL (8.5-10.1); CARBON DIOXIDE LEVEL 29 MMOL/L (20-31); CHLORIDE LEVEL 108 MMOL/L (98-107); CREATININE FOR GFR 0.68 MG/DL (0.55-1.30); GLOMERULAR FILTRATION RATE > 60.0 (>51); GLUCOSE, FASTING 85 MG/DL (60-100); POTASSIUM SERUM 3.6 MMOL/L (3.5-5.1); SODIUM LEVEL 143 MMOL/L (136-145); TOTAL PROTEIN 5.6 G/DL (5.7-8.2)
[2022-08-26] MEDS: NS 1,000 ML IV SCH (07:59)
[2022-08-26] MEDS ORDERED: LOSARTAN 50MG TABLET PO SCH (09:00)
[2022-08-26] MEDS: DIGOXIN 0.125 MG TAB PO SCH (09:25)
[2022-08-26] MEDS: CitaloPRAM (CeleXA) 10 MG TABLET PO SCH (09:25)
[2022-08-26] MEDS: atenoloL 50 MG TAB PO SCH (09:26)
[2022-08-26 11:48] LABS: HEPATITIS B SURFACE ANTIGEN NEGATIVE (NEGATIVE)
[2022-08-26] MEDS ORDERED: POTASSIUM CHLORIDE 10MEQ SR TABLET PO ONE (12:00)
[2022-08-26 12:10] LABS: HEPATITIS B CORE ANTIBODY IGM NEGATIVE (NEGATIVE)
[2022-08-26] MEDS: LOSARTAN 50MG TABLET PO SCH (12:30)
[2022-08-26] MEDS: CHLORTHALIDONE 12.5MG PER 1/2 TABLET PO SCH (12:31)
[2022-08-26] MEDS: APIXABAN 5 MG TAB (ELIQUIS) PO SCH ×2 (13:00→20:21)
[2022-08-27] MEDS: PIPERACILLIN/TAZOBACTAM SOD 4.5 GM in D5W MINI-BAG PLUS 50 ML IV SCH ×2 (02:12→08:49)
[2022-08-27 03:28] VITALS: BP 126/65
[2022-08-27 05:39] LABS: HEMATOCRIT 36.4 % (36.0-47.0); HEMOGLOBIN 11.4 g/dl (12.0-15.5); MEAN CORPUSCULAR HEMOGLOBIN 26.2 pg (27.0-33.0); MEAN CORPUSCULAR HGB CONC 31.3 g/dl (32.0-36.5); MEAN CORPUSCULAR VOLUME 83.7 fl (80.0-96.0); PLATELET COUNT, AUTOMATED 274 10^3/uL (150-450); RED BLOOD COUNT 4.35 10^6/uL (4.00-5.40); WHITE BLOOD COUNT 6.1 10^3/uL (4.0-10.0)
[2022-08-27] MEDS: LEVOTHYROXINE 100MCG TABLET (0.1MG) PO SCH (05:39)
[2022-08-27 06:02] LABS: ALBUMIN 3.1 G/DL (3.2-5.2); ALKALINE PHOSPHATASE 72 U/L (46-116); ALT/SGPT 168 U/L (7.0-40); AST/SGOT 71 U/L (<34); BILIRUBIN,TOTAL 0.6 MG/DL (0.3-1.2); BLOOD UREA NITROGEN 13 MG/DL (9-23); CALCIUM LEVEL 9.1 MG/DL (8.5-10.1); CARBON DIOXIDE LEVEL 28 MMOL/L (20-31); CHLORIDE LEVEL 107 MMOL/L (98-107); CREATININE FOR GFR 0.66 MG/DL (0.55-1.30); GLOMERULAR FILTRATION RATE > 60.0 (>51); GLUCOSE, FASTING 94 MG/DL (60-100); PHOSPHORUS LEVEL 3.4 MG/DL (2.5-4.9); POTASSIUM SERUM 3.9 MMOL/L (3.5-5.1); SODIUM LEVEL 140 MMOL/L (136-145); TOTAL PROTEIN 5.6 G/DL (5.7-8.2)
[2022-08-27 07:50] VITALS: BP 130/63
[2022-08-27] MEDS ORDERED: ELIQ5TAB PO (08:38)
[2022-08-27] MEDS ORDERED: METR-265 PO (08:49)
[2022-08-27] MEDS ORDERED: CEFD300C41 PO (08:49)
[2022-08-27] MEDS ORDERED: DIGO0.123 PO (08:49)
[2022-08-27] MEDS ORDERED: COZA50TA PO (08:49)
[2022-08-27] MEDS ORDERED: ATEN50TA2 PO (08:49)
[2022-08-27] MEDS: DIGOXIN 0.125 MG TAB PO SCH (08:50)
[2022-08-27] MEDS: CHLORTHALIDONE 12.5MG PER 1/2 TABLET PO SCH (08:50)
[2022-08-27] MEDS: CitaloPRAM (CeleXA) 10 MG TABLET PO SCH (08:50)
[2022-08-27] MEDS: APIXABAN 5 MG TAB (ELIQUIS) PO SCH (08:51)
[2022-08-27] MEDS: atenoloL 50 MG TAB PO SCH (08:51)
[2022-08-27] MEDS: LOSARTAN 50MG TABLET PO SCH (08:51)
== END 2022-08-27 11:08 | disposition home or self-care (01) | DRG 446 ==
LOC: M ED 22:44 → M ED INP 22:53 → M PCU 22:58
PROVIDERS: ADMIT Family Medicine; ATTEND Family Medicine
PROC: B246ZZZ Ultrasonography of Right and Left Heart (ICD-10-PCS; principal; 2022-08-27)
DX: K80.00 Calculus of gallbladder with acute cholecystitis without obstruction (principal); I10 Essential (primary) hypertension; E03.9 Hypothyroidism, unspecified; R74.01 Elevation of levels of liver transaminase levels; Z90.79 Acquired absence of other genital organ(s); I48.91 Unspecified atrial fibrillation; E66.9 Obesity, unspecified; Z68.35 Body mass index [BMI] 35.0-35.9, adult; Z79.890 Hormone replacement therapy; Z79.899 Other long term (current) drug therapy; Z20.822 Contact with and (suspected) exposure to COVID-19

== ENCOUNTER → 2022-09-15 | Outpatient (CLI) | payer OTHER ==
[~2022-09-15] MED LIST changes: -ACETAMINOPHEN TAB 650MG DOSE (2X325MG) PO PRN; -ASPIRIN 81MG CHEW TABLET As Ordered ONE; -ASPIRIN 81MG CHEW TABLET PO ONE; +ATEN50TA2 PO; +CEFD300C41 PO; +CELE10TA PO; +CHLO125TA PO; +COZA50TA PO; +DIGO0.123 PO; -DIGOXIN 0.25 MG TAB PO ONE; +ELIQ5TAB PO; -ISOVUE-370 76% 100ML VIAL As Ordered ONE; +LOSA100T45 PO; -METOPROLOL 5 MG/5 ML VIAL As Ordered ONE; -METOPROLOL 5 MG/5 ML VIAL IV STA; +METR-265 PO; -MOM 30ML SUSPENSION UDC PO PRN; -NITROGLYCERIN 0.4MG SUBL TABLET As Ordered ONE; -NITROGLYCERIN 0.4MG SUBL TABLET SL PRN; -NS 500 ML IV ONE; -ONDANSETRON 4MG 2ML VIAL As Ordered ONE; -ONDANSETRON 4MG 2ML VIAL IV ONE; -PIPERACILLIN/TAZOBACTAM SOD 4.5 GM in D5W MINI-BAG PLUS 50 ML IV ONE; +SEMA1PEN2 SC; +SYNT100T PO; +VITA100093 PO; -atenoloL 50 MG TAB PO ONE; -fentaNYL 100 MCG/2 ML INJECTION As Ordered ONE
[2022-09-15 17:43] LABS: BASO # 0.1 10^3/uL (0.0-0.2); BASO % 0.7 % (0.0-1.0); EOS # 0.2 10^3/uL (0.0-0.5); EOS % 2.9 % (0.0-3.0); HEMATOCRIT 39.6 % (36.0-47.0); HEMOGLOBIN 12.4 g/dl (12.0-15.5); LYMPH # 2.6 10^3/uL (1.5-5.0); MEAN CORPUSCULAR HEMOGLOBIN 26.8 pg (27.0-33.0); MEAN CORPUSCULAR HGB CONC 31.3 g/dl (32.0-36.5); MEAN CORPUSCULAR VOLUME 85.5 fl (80.0-96.0); MONO # 0.4 10^3/uL (0.0-0.8); NEUTROPHILS # 4.1 10^3/uL (1.5-8.5); PLATELET COUNT, AUTOMATED 245 10^3/uL (150-450); RED BLOOD COUNT 4.63 10^6/uL (4.00-5.40); WHITE BLOOD COUNT 7.4 10^3/uL (4.0-10.0)
[2022-09-15 17:50] LABS: ALBUMIN 3.7 G/DL (3.2-5.2); ALKALINE PHOSPHATASE 64 U/L (46-116); ALT/SGPT 42 U/L (7.0-40); AST/SGOT 21 U/L (<34); BILIRUBIN,TOTAL 0.5 MG/DL (0.3-1.2); BLOOD UREA NITROGEN 15 MG/DL (9-23); CALCIUM LEVEL 10.6 MG/DL (8.5-10.1); CARBON DIOXIDE LEVEL 30 MMOL/L (20-31); CHLORIDE LEVEL 105 MMOL/L (98-107); CREATININE FOR GFR 0.56 MG/DL (0.55-1.30); GLOMERULAR FILTRATION RATE > 60.0 (>51); GLUCOSE, FASTING 87 MG/DL (60-100); POTASSIUM SERUM 4.1 MMOL/L (3.5-5.1); SODIUM LEVEL 139 MMOL/L (136-145); TOTAL PROTEIN 6.8 G/DL (5.7-8.2)
[2022-09-15 17:52] LABS: THYROID STIMULATING HORMONE 0.103 uIU/ML (0.55-4.78)
== END ==
LOC: M PLALAB 15:09
PROVIDERS: ATTEND Physician Assistant Medical
DX: E03.9 Hypothyroidism, unspecified (principal); K81.9 Cholecystitis, unspecified; I48.91 Unspecified atrial fibrillation

== ENCOUNTER → 2022-09-15 | Outpatient (REF) | payer OTHER | LOC: M SFHCPLAZ 14:46 | PROVIDERS: ATTEND Physician Assistant Medical | DX: K81.9 Cholecystitis, unspecified (principal); I48.91 Unspecified atrial fibrillation; Z53.8 Procedure and treatment not carried out for other reasons ==

== ENCOUNTER → 2022-09-17 | Outpatient (REF) | payer OTHER | LOC: M SFHCPLAZ 17:16 | PROVIDERS: ATTEND Physician Assistant Medical | DX: Z53.9 Procedure and treatment not carried out, unspecified reason (principal) ==

== ENCOUNTER 2022-10-31 06:07 | Day surgery (SDC) | payer OTHER ==
[~2022-10-31] VITALS: Ht 157.5 cm; Wt 97.5 kg
[~2022-10-31 06:07] MED LIST changes: -COZA50TA PO; +LEVO75TA4 PO; +LOSA-528 PO; -LOSA100T45 PO; +LOSA100T46 PO
[2022-10-31] MEDS ORDERED: MIDAZOLAM INJ 2MG/2ML VIAL As Ordered ONE (07:13)
[2022-10-31] MEDS ORDERED: fentaNYL 250 MCG/5 ML INJECTION As Ordered ONE (07:13)
[2022-10-31] MEDS ORDERED: KETOROLAC 60MG 2ML VIAL As Ordered ONE (07:13)
[2022-10-31] MEDS ORDERED: ONDANSETRON 4MG 2ML VIAL As Ordered ONE (07:14)
[2022-10-31] MEDS ORDERED: LIDOCAINE 2% 100MG/5ML SDV (FOR ANES.) As Ordered ONE (07:14)
[2022-10-31] MEDS ORDERED: propofoL 200 MG/20 ML VIAL As Ordered ONE (07:14)
[2022-10-31] MEDS ORDERED: ACETAMINOPHEN 1000MG 100ML IV BAG As Ordered ONE (07:14)
[2022-10-31] MEDS ORDERED: ROCURONIUM BROMIDE 50MG/5ML VIAL As Ordered ONE ×2 (07:14→08:18)
[2022-10-31] MEDS ORDERED: BUPIVACAINE/EPIN 0.25% 30ML VIAL As Ordered ONE (07:16)
[2022-10-31] MEDS ORDERED: PHENYLephrine 500MCG 5ML (100MCG/ML) SYRINGE As Ordered ONE (08:03)
[2022-10-31] MEDS ORDERED: ePHEDrine SULFATE 25 MG/5 ML(5MG/ML) SYRINGE As Ordered ONE (08:04)
[2022-10-31] MEDS ORDERED: SUGAMMADEX SODIUM 500 MG/5 ML VIAL (BRIDION) As Ordered ONE (08:05)
[2022-10-31] MEDS ORDERED: fentaNYL 100 MCG/2 ML INJECTION As Ordered ONE (08:43)
[2022-10-31] MEDS ORDERED: oxyCODONE 5MG TAB PO PRN (08:50)
[2022-10-31] MEDS ORDERED: LR 1,000 ML IV SCH (08:50)
[2022-10-31] MEDS ORDERED: ONDANSETRON 4MG 2ML VIAL IV PRN (08:50)
[2022-10-31] MEDS ORDERED: fentaNYL 100 MCG/2 ML INJECTION IV PRN (08:50)
[2022-10-31] MEDS ORDERED: hydrALAZINE 20MG/ML 1ML VIAL IV PRN (09:05)
[2022-10-31] MEDS ORDERED: hydrALAZINE 20MG/ML 1ML VIAL As Ordered ONE (09:08)
[2022-10-31] MEDS: HYDROMORPHONE HCL 0.5 MG/ 0.5 ML SYRINGE IV PRN ×4 (09:13→09:35)
[2022-10-31 09:17] VITALS: BP 173/78
[2022-10-31 12:14] VITALS: BP 112/62; TEMP 97.4; O2SAT 96
== END 2022-10-31 12:21 | disposition home or self-care (01) ==
LOC: M SDC 06:07
PROVIDERS: ATTEND Surgery
DX: K81.2 Acute cholecystitis with chronic cholecystitis (principal); I48.91 Unspecified atrial fibrillation; I10 Essential (primary) hypertension; E11.9 Type 2 diabetes mellitus without complications; E03.9 Hypothyroidism, unspecified; M19.90 Unspecified osteoarthritis, unspecified site; F41.9 Anxiety disorder, unspecified; F32.A Depression, unspecified; G47.33 Obstructive sleep apnea (adult) (pediatric); Z87.891 Personal history of nicotine dependence; Z79.899 Other long term (current) drug therapy; Z79.2 Long term (current) use of antibiotics; Z79.01 Long term (current) use of anticoagulants; Z79.890 Hormone replacement therapy; Z79.84 Long term (current) use of oral hypoglycemic drugs
CPT/HCPCS: 47562; 88304; J0131; J0360; J1100; J1170; J1885; J2250; J2370; J2405; J3010; S0020; S2900

== ENCOUNTER → 2022-11-14 | Outpatient (CLI) | payer OTHER ==
[2022-11-14 13:33] LABS: BASO # 0.1 10^3/uL (0.0-0.2); BASO % 0.5 % (0.0-1.0); EOS # 0.1 10^3/uL (0.0-0.5); EOS % 0.6 % (0.0-3.0); HEMATOCRIT 40.2 % (36.0-47.0); HEMOGLOBIN 13.1 g/dl (12.0-15.5); LYMPH # 1.8 10^3/uL (1.5-5.0); LYMPH % 18.1 % (24.0-44.0); MEAN CORPUSCULAR HEMOGLOBIN 27.4 pg (27.0-33.0); MEAN CORPUSCULAR HGB CONC 32.6 g/dl (32.0-36.5); MEAN CORPUSCULAR VOLUME 84.1 fl (80.0-96.0); MONO # 0.5 10^3/uL (0.0-0.8); MONO % 5.3 % (2.0-8.0); NEUTROPHILS # 7.6 10^3/uL (1.5-8.5); NEUTROPHILS % 74.9 % (36.0-66.0); PLATELET COUNT, AUTOMATED 328 10^3/uL (150-450); RED BLOOD COUNT 4.78 10^6/uL (4.00-5.40); WHITE BLOOD COUNT 10.2 10^3/uL (4.0-10.0)
[2022-11-14 13:39] LABS: ALBUMIN 3.6 G/DL (3.2-5.2); ALKALINE PHOSPHATASE 77 U/L (46-116); ALT/SGPT 19 U/L (7.0-40); AST/SGOT 12 U/L (<34); BILIRUBIN,TOTAL 0.5 MG/DL (0.3-1.2); BLOOD UREA NITROGEN 16 MG/DL (9-23); CARBON DIOXIDE LEVEL 29 MMOL/L (20-31); CHLORIDE LEVEL 103 MMOL/L (98-107); CHOLESTEROL LEVEL 215 MG/DL (<200); CHOLESTEROL RISK RATIO 5.11 (<5); CREATININE FOR GFR 0.56 MG/DL (0.55-1.30); GLOMERULAR FILTRATION RATE > 60.0 (>51); GLUCOSE, FASTING 91 MG/DL (60-100); LDL CHOLESTEROL 154.8 MG/DL (<100); POTASSIUM SERUM 4.4 MMOL/L (3.5-5.1); SODIUM LEVEL 140 MMOL/L (136-145); TOTAL PROTEIN 6.4 G/DL (5.7-8.2); TRIGLYCERIDES LEVEL 91 MG/DL (<150)
[2022-11-14 13:41] LABS: TOTAL 25(OH) VITAMIN D 34.5 NG/ML (20.0-100.0)
[2022-11-14 14:00] LABS: HEMOGLOBIN A1c 5.2 % (4.0-6.0)
== END ==
LOC: M PLALAB 10:11
PROVIDERS: ATTEND Nurse Practitioner Family
DX: I10 Essential (primary) hypertension (principal); E55.9 Vitamin D deficiency, unspecified; R73.03 Prediabetes; E78.5 Hyperlipidemia, unspecified

== ENCOUNTER → 2022-11-14 | Outpatient (CLI) | payer OTHER ==
[2022-11-14 13:40] LABS: ALBUMIN 3.5 G/DL (3.2-5.2); ALKALINE PHOSPHATASE 77 U/L (46-116); ALT/SGPT 19 U/L (7.0-40); AST/SGOT 15 U/L (<34); BILIRUBIN,TOTAL 0.4 MG/DL (0.3-1.2); BLOOD UREA NITROGEN 16 MG/DL (9-23); CALCIUM LEVEL 9.9 MG/DL (8.5-10.1); CARBON DIOXIDE LEVEL 30 MMOL/L (20-31); CHLORIDE LEVEL 104 MMOL/L (98-107); CREATININE FOR GFR 0.59 MG/DL (0.55-1.30); GLOMERULAR FILTRATION RATE > 60.0 (>51); GLUCOSE, FASTING 88 MG/DL (60-100); POTASSIUM SERUM 4.4 MMOL/L (3.5-5.1); SODIUM LEVEL 138 MMOL/L (136-145); TOTAL PROTEIN 6.5 G/DL (5.7-8.2)
[2022-11-14 13:41] LABS: THYROID STIMULATING HORMONE 0.733 uIU/ML (0.55-4.78); TOTAL 25(OH) VITAMIN D 39.7 NG/ML (20.0-100.0)
[2022-11-14 13:42] LABS: FREE T4 1.24 NG/DL (0.89-1.76)
== END ==
LOC: M PLALAB 10:14
PROVIDERS: ATTEND Physician Assistant Medical
DX: E03.9 Hypothyroidism, unspecified (principal); E83.52 Hypercalcemia

== ENCOUNTER → 2023-01-08 | Outpatient (REF) | payer OTHER ==
[2023-01-08 17:55] LABS: ALBUMIN 3.8 G/DL (3.2-5.2); BILIRUBIN,DIRECT 0.2 MG/DL (<0.4); BILIRUBIN,TOTAL 0.5 MG/DL (0.3-1.2); CHOLESTEROL RISK RATIO 3.05 (<5); HDL CHOLESTEROL 47.2 MG/DL (>40); LDL CHOLESTEROL 68.8 MG/DL (<100); NON-HDL-C 96.8 MG/DL; TOTAL PROTEIN 6.5 G/DL (5.7-8.2)
[2023-01-08 17:59] LABS: THYROID STIMULATING HORMONE 2.752 uIU/ML (0.55-4.78)
== END ==
LOC: M PLALAB 16:54
PROVIDERS: ATTEND Internal Medicine Cardiovascular Disease
DX: E78.00 Pure hypercholesterolemia, unspecified (principal); E03.9 Hypothyroidism, unspecified

== ENCOUNTER 2023-01-20 06:44 | Emergency (ER) | payer OTHER ==
[~2023-01-20] VITALS: Ht 157.5 cm; Wt 90.0 kg
[2023-01-20] MEDS ORDERED: BOOSTRIX VACCINE (TETANUS/DIPHTH/ACEL. PERTUSSIS) 0.5ML SYR IM ONE (07:15)
[2023-01-20 07:39] LABS: BASO % 0.6 % (0.0-1.0); EOS # 0.1 10^3/uL (0.0-0.5); EOS % 2.2 % (0.0-3.0); HEMOGLOBIN 10.7 g/dl (12.0-15.5); LYMPH # 1.5 10^3/uL (1.5-5.0); LYMPH % 23.9 % (24.0-44.0); MEAN CORPUSCULAR HEMOGLOBIN 28.3 pg (27.0-33.0); MEAN CORPUSCULAR HGB CONC 32.4 g/dl (32.0-36.5); MEAN CORPUSCULAR VOLUME 87.3 fl (80.0-96.0); MONO # 0.3 10^3/uL (0.0-0.8); NEUTROPHILS # 4.3 10^3/uL (1.5-8.5); NEUTROPHILS % 67.8 % (36.0-66.0); PLATELET COUNT, AUTOMATED 224 10^3/uL (150-450); RED BLOOD COUNT 3.78 10^6/uL (4.00-5.40); WHITE BLOOD COUNT 6.4 10^3/uL (4.0-10.0)
[2023-01-20 07:56] LABS: INR 1.2; PARTIAL THROMBOPLASTIN TIME 25.5 SECONDS (24.8-34.2); PROTHROMBIN TIME 14.9 SECONDS (12.5-14.5)
[2023-01-20] MEDS ORDERED: POTASSIUM CHLORIDE 10MEQ SR TABLET PO ONE (08:05)
[2023-01-20] MEDS ORDERED: AMOX875T2 PO (08:14)
[2023-01-20 08:27] VITALS: BP 135/64; TEMP 97.2; O2SAT 100
== END 2023-01-20 08:59 | disposition home or self-care (01) ==
LOC: M ED 06:44 → EDBD 06:44 → M ED 08:59
DX: S81.852A Open bite, left lower leg, initial encounter (principal); W55.01XA Bitten by cat, initial encounter; E87.6 Hypokalemia; E11.9 Type 2 diabetes mellitus without complications; I10 Essential (primary) hypertension; E03.9 Hypothyroidism, unspecified; Z79.01 Long term (current) use of anticoagulants; Z79.899 Other long term (current) drug therapy

== ENCOUNTER → 2023-01-28 | Outpatient (CLI) | payer OTHER ==
[~2023-01-28] MED LIST changes: +AMOX875T2 PO
[2023-01-28 18:17] LABS: FREE T4 1.23 NG/DL (0.89-1.76)
[2023-01-28 18:18] LABS: THYROID STIMULATING HORMONE 2.113 uIU/ML (0.55-4.78)
== END ==
LOC: M PLALAB 15:37
PROVIDERS: ATTEND Nurse Practitioner Family
DX: E06.3 Autoimmune thyroiditis (principal)

== ENCOUNTER → 2023-05-07 | Outpatient (CLI) | payer OTHER ==
[~2023-05-07] MED LIST changes: +CEFD1CAP9 PO; -CEFD300C41 PO
[2023-05-07 10:25] LABS: BASO # 0.1 10^3/uL (0.0-0.2); BASO % 0.9 % (0.0-1.0); EOS # 0.2 10^3/uL (0.0-0.5); EOS % 2.6 % (0.0-3.0); HEMOGLOBIN 12.9 g/dl (12.0-15.5); LYMPH % 33.7 % (24.0-44.0); MEAN CORPUSCULAR HEMOGLOBIN 26.4 pg (27.0-33.0); MEAN CORPUSCULAR HGB CONC 31.5 g/dl (32.0-36.5); MEAN CORPUSCULAR VOLUME 83.8 fl (80.0-96.0); MONO # 0.4 10^3/uL (0.0-0.8); MONO % 6.2 % (2.0-8.0); NEUTROPHILS # 3.3 10^3/uL (1.5-8.5); NEUTROPHILS % 56.3 % (36.0-66.0); PLATELET COUNT, AUTOMATED 262 10^3/uL (150-450); RED BLOOD COUNT 4.89 10^6/uL (4.00-5.40); TOTAL 25(OH) VITAMIN D 34.5 NG/ML (20.0-100.0); WHITE BLOOD COUNT 5.8 10^3/uL (4.0-10.0)
[2023-05-07 10:26] LABS: THYROID STIMULATING HORMONE 2.784 uIU/ML (0.55-4.78)
[2023-05-07 10:27] LABS: FREE T4 1.11 NG/DL (0.89-1.76)
[2023-05-07 10:29] LABS: ALBUMIN 3.8 G/DL (3.2-5.2); ALKALINE PHOSPHATASE 63 U/L (46-116); ALT/SGPT 24 U/L (7.0-40); AST/SGOT 20 U/L (<34); BILIRUBIN,TOTAL 0.7 MG/DL (0.3-1.2); BLOOD UREA NITROGEN 16 MG/DL (9-23); CARBON DIOXIDE LEVEL 31 MMOL/L (20-31); CHLORIDE LEVEL 104 MMOL/L (98-107); CHOLESTEROL LEVEL 149 MG/DL (<200); CHOLESTEROL RISK RATIO 3.37 (<5); CREATININE FOR GFR 0.56 MG/DL (0.55-1.30); GLOMERULAR FILTRATION RATE > 60.0 (>51); GLUCOSE, FASTING 92 MG/DL (60-100); HDL CHOLESTEROL 44.2 MG/DL (>40); LDL CHOLESTEROL 90.4 MG/DL (<100); NON-HDL-C 104.8 MG/DL; SODIUM LEVEL 142 MMOL/L (136-145); TOTAL PROTEIN 6.4 G/DL (5.7-8.2); TRIGLYCERIDES LEVEL 72 MG/DL (<150)
[2023-05-07 11:11] LABS: HEMOGLOBIN A1c 5.5 % (4.0-6.0)
== END ==
LOC: M PLALAB 07:53
PROVIDERS: ATTEND Nurse Practitioner Family
DX: E78.5 Hyperlipidemia, unspecified (principal); E03.9 Hypothyroidism, unspecified; I10 Essential (primary) hypertension; R73.03 Prediabetes; E55.9 Vitamin D deficiency, unspecified

== ENCOUNTER → 2023-07-29 | Outpatient (CLI) | payer OTHER ==
[2023-07-29 17:36] LABS: FREE T4 1.23 NG/DL (0.89-1.76); THYROID STIMULATING HORMONE 1.008 uIU/ML (0.55-4.78)
== END ==
LOC: M PLALAB 15:27
PROVIDERS: ATTEND Nurse Practitioner Family
DX: E06.3 Autoimmune thyroiditis (principal)

== ENCOUNTER → 2023-09-24 | Outpatient (CLI) | payer OTHER | LOC: M EKG 15:42 | PROVIDERS: ATTEND Internal Medicine Cardiovascular Disease | DX: I48.0 Paroxysmal atrial fibrillation (principal); I49.3 Ventricular premature depolarization ==

== ENCOUNTER → 2023-09-29 | Outpatient (CLI) | payer OTHER | LOC: M CARPUL 13:18 | PROVIDERS: ATTEND Internal Medicine Cardiovascular Disease | DX: I49.3 Ventricular premature depolarization (principal); R94.31 Abnormal electrocardiogram [ECG] [EKG]; I11.9 Hypertensive heart disease without heart failure ==

== ENCOUNTER → 2023-11-03 | Outpatient (CLI) | payer OTHER ==
[2023-11-03 11:25] LABS: BASO # 0.1 10^3/uL (0.0-0.2); EOS # 0.2 10^3/uL (0.0-0.5); EOS % 2.9 % (0.0-3.0); HEMATOCRIT 42.2 % (36.0-47.0); HEMOGLOBIN 13.2 g/dl (12.0-15.5); LYMPH # 1.9 10^3/uL (1.5-5.0); LYMPH % 30.5 % (24.0-44.0); MEAN CORPUSCULAR HEMOGLOBIN 27.2 pg (27.0-33.0); MEAN CORPUSCULAR HGB CONC 31.3 g/dl (32.0-36.5); MEAN CORPUSCULAR VOLUME 86.8 fl (80.0-96.0); MONO # 0.4 10^3/uL (0.0-0.8); MONO % 6.9 % (2.0-8.0); NEUTROPHILS # 3.6 10^3/uL (1.5-8.5); NEUTROPHILS % 57.9 % (36.0-66.0); PLATELET COUNT, AUTOMATED 293 10^3/uL (150-450); RED BLOOD COUNT 4.86 10^6/uL (4.00-5.40); WHITE BLOOD COUNT 6.3 10^3/uL (4.0-10.0)
[2023-11-03 11:46] LABS: HEMOGLOBIN A1c 5.4 % (4.0-6.0)
[2023-11-03 11:59] LABS: ALBUMIN 3.9 G/DL (3.2-5.2); ALKALINE PHOSPHATASE 67 U/L (46-116); ALT/SGPT 31 U/L (7.0-40); AST/SGOT 14 U/L (<34); BILIRUBIN,TOTAL 0.5 MG/DL (0.3-1.2); BLOOD UREA NITROGEN 20 MG/DL (9-23); CALCIUM LEVEL 10.1 MG/DL (8.5-10.1); CARBON DIOXIDE LEVEL 31 MMOL/L (20-31); CHLORIDE LEVEL 104 MMOL/L (98-107); CHOLESTEROL LEVEL 161 MG/DL (<200); CHOLESTEROL RISK RATIO 3.02 (<5); GLOMERULAR FILTRATION RATE > 60.0 (>51); GLUCOSE, FASTING 99 MG/DL (60-100); HDL CHOLESTEROL 53.3 MG/DL (>40); LDL CHOLESTEROL 91.5 MG/DL (<100); NON-HDL-C 107.7 MG/DL; POTASSIUM SERUM 4.2 MMOL/L (3.5-5.1); SODIUM LEVEL 140 MMOL/L (136-145); THYROID STIMULATING HORMONE 2.841 uIU/ML (0.55-4.78); TOTAL 25(OH) VITAMIN D 57.5 NG/ML (20.0-100.0); TOTAL PROTEIN 6.5 G/DL (5.7-8.2); TRIGLYCERIDES LEVEL 81 MG/DL (<150)
== END ==
LOC: M PLALAB 07:18
PROVIDERS: ATTEND Nurse Practitioner Family
DX: R73.03 Prediabetes (principal); I10 Essential (primary) hypertension; E55.9 Vitamin D deficiency, unspecified; E78.5 Hyperlipidemia, unspecified; E03.9 Hypothyroidism, unspecified

== ENCOUNTER → 2024-01-29 | Outpatient (CLI) | payer OTHER ==
[2024-01-29 14:50] LABS: FREE T4 1.36 NG/DL (0.89-1.76)
[2024-01-29 14:51] LABS: THYROID STIMULATING HORMONE 1.936 uIU/ML (0.55-4.78)
== END ==
LOC: M PLALAB 10:08
PROVIDERS: ATTEND Nurse Practitioner Family
DX: E06.3 Autoimmune thyroiditis (principal)

== ENCOUNTER → 2024-05-04 | Outpatient (CLI) | payer OTHER ==
[2024-05-04 15:10] LABS: BASO % 0.6 % (0.0-1.0); EOS # 0.2 10^3/uL (0.0-0.5); EOS % 2.4 % (0.0-3.0); HEMATOCRIT 42.6 % (36.0-47.0); HEMOGLOBIN 13.5 g/dl (12.0-15.5); LYMPH % 28.9 % (24.0-44.0); MEAN CORPUSCULAR HEMOGLOBIN 27.4 pg (27.0-33.0); MEAN CORPUSCULAR HGB CONC 31.7 g/dl (32.0-36.5); MEAN CORPUSCULAR VOLUME 86.6 fl (80.0-96.0); MONO # 0.5 10^3/uL (0.0-0.8); MONO % 6.7 % (2.0-8.0); NEUTROPHILS # 4.3 10^3/uL (1.5-8.5); NEUTROPHILS % 60.8 % (36.0-66.0); PLATELET COUNT, AUTOMATED 291 10^3/uL (150-450); RED BLOOD COUNT 4.92 10^6/uL (4.00-5.40)
[2024-05-04 15:15] LABS: CHOLESTEROL RISK RATIO 3.24 (<5); LDL CHOLESTEROL 100.4 MG/DL (<100)
[2024-05-04 15:19] LABS: FREE T4 1.14 NG/DL (0.89-1.76)
[2024-05-04 15:20] LABS: THYROID STIMULATING HORMONE 2.164 uIU/ML (0.55-4.78)
[2024-05-04 15:33] LABS: HEMOGLOBIN A1c 5.5 % (4.0-6.0)
== END ==
LOC: M PLALAB 09:26
PROVIDERS: ATTEND Nurse Practitioner Family
DX: E78.5 Hyperlipidemia, unspecified (principal); E03.9 Hypothyroidism, unspecified; E55.9 Vitamin D deficiency, unspecified; I10 Essential (primary) hypertension; R73.03 Prediabetes

== ENCOUNTER → 2024-09-14 | Outpatient (CLI) | payer OTHER | LOC: M RAD 15:23 | PROVIDERS: ATTEND Physician Assistant | DX: R09.89 Other specified symptoms and signs involving the circulatory and respiratory systems (principal) ==

== ENCOUNTER → 2025-03-08 | Outpatient (CLI) | payer OTHER ==
[2025-03-08 19:11] LABS: CALCIUM LEVEL 10.1 MG/DL (8.5-10.1); CARBON DIOXIDE LEVEL 30 MMOL/L (20-31); CHLORIDE LEVEL 104 MMOL/L (98-107); CREATININE FOR GFR 0.65 MG/DL (0.55-1.30); GLOMERULAR FILTRATION RATE > 90.0 (>51); POTASSIUM SERUM 4.0 MMOL/L (3.5-5.1); SODIUM LEVEL 143 MMOL/L (136-145)
[2025-03-08 19:13] LABS: FREE T4 1.22 NG/DL (0.89-1.76)
== END ==
LOC: M PLALAB 15:27
PROVIDERS: ATTEND Nurse Practitioner Family
DX: E06.3 Autoimmune thyroiditis (principal)